=== PATIENT | male | born 1965 | race Caucasian/White ===

== ENCOUNTER → 2016-04-23 | Outpatient (CLI) | payer BC ==
--- NOTE | 2016-04-24 09:11 | CT ---
EXAMINATION TYPE: CT abdomen w con DATE OF EXAM: 04/23/2016 8:08 PM COMPARISON: CT chest 28 March 2016 HISTORY: follow up chest CT per patient. Left renal cyst, liver lesion N28.9, K76.89 CT DLP: 1628.2 mGycm Automated exposure control for dose reduction was used. TECHNIQUE: Helical acquisition of images from the lung bases through the pelvis have been completed. CONTRAST: Performed with Oral Contrast and with IV Contrast, patient injected with 100 mL of Omnipaque 300. FINDINGS: LUNG BASES: No significant abnormality is appreciated. AORTA: No significant abnormality is appreciated. LIVER/GB: The liver shows low attenuation possibly due to fatty infiltration. No evident change in th e appearance of the previously described liver lesions which show a nonaggressive appearance. The gal lbladder is contracted. PANCREAS: No significant abnormality is seen. SPLEEN: No significant abnormality is seen. ADRENALS: No significant abnormality is seen. KIDNEYS: Left renal cyst measures approximately 2.5 cm, shows cystic Hounsfield unit measurements. REPRODUCTIVE ORGANS: Not included BOWEL: Appendix is normal, no bowel obstruction diverticular changes noted in the sigmoid colon. Sma ll umbilical hernia contains fat. FREE AIR: No Free Air visible ASCITES: None visible. PELVIC ADENOPATHY: Not included RETROPERITONEAL ADENOPATHY: No Retroperitoneal Adenopathy visible. URINARY BLADDER: Not included OSSEOUS STRUCTURES: Mild degenerative disc changes in the visualized spine. IMPRESSION: PROBABLE SIMPLE CYST WITHIN THE LEFT KIDNEY, FOLLOW-UP TO ASSESS FOR STABILITY. PROBABLE FATTY INFILT RATION OF THE LIVER. NONSPECIFIC LOW DENSE FOCI WITHIN THE LIVER ARE STABLE COMPARED TO PRIOR EXAM . THESE AREAS SHOW NONAGGRESSIVE APPEARANCE AND ARE FELT LIKELY TO BE BENIGN, CONSIDER FOLLOW-UP TO A SSESS FOR STABILITY OR ALTERNATIVELY CONSIDER MR LIVER. DIVERTICULOSIS. ADDITIONAL FINDINGS ABOVE.
== END | disposition home or self-care (01) ==
LOC: RADCTMAIN 19:19
PROVIDERS: ATTEND Internal Medicine
DX: N28.1 Cyst of kidney, acquired (principal)
CPT/HCPCS: 74160; Q9967

== ENCOUNTER → 2016-07-24 | Outpatient (CLI) | payer BC ==
--- NOTE | 2016-07-25 07:12 | PN ---
A 50-year-old male patient diagnosed having severe obstructive sleep apnea with an AHI of 67. Today the patient is coming in for a compliancy check. Currently, the patient is on CPAP pressure of 10 cm of water. He is doing extremely well. His compliancy over the past 30 days showed a 100% compliance for CPAP use more than 4 hours. AHI while on treatment is down to 2.3. The patient's average CPAP unit is 5.9 hours and the patient's leak factor is 23 L/min. Treatment is successful. The patient is benefiting from the treatment. He has no specific complaints. He is encouraged to lose weight. BP is 139/84, pulse 76, respirations 16. Montgomery score of 12 and weight is 337, temperature 97.6. GENERAL APPEARANCE: Calm, comfortable. HEENT: Crowding of the posterior pharynx. There is no goiter or neck masses. LUNGS: Diminished; otherwise clear. HEART: Sounds are regular rate and rhythm. Normal S1, S2. ABDOMEN: Soft, nontender. No organomegaly. EXTREMITIES: No edema, no cyanosis or clubbing. IMPRESSION: 1. Symptomatic obstructive sleep apnea, severe, with an apnea-hypopnea index of 67.2, currently on CPAP at a pressure of 10 with excellent clinical response and compliance. 2. Morbid obesity. 3. Chronic hypersomnia. Montgomery score is down to 12. 4. Paroxysmal atrial fibrillation. 5. Periodic limb movements. PLAN: Continue treatment at the same level of pressure, treatment is successful, encourage weight loss, see me back in a year's time in follow-up.
== END | disposition home or self-care (01) ==
LOC: SLEEP 13:42
PROVIDERS: ATTEND Internal Medicine Critical Care Medicine
DX: G47.33 Obstructive sleep apnea (adult) (pediatric) (principal); E66.01 Morbid (severe) obesity due to excess calories; G47.13 Recurrent hypersomnia; I48.0 Paroxysmal atrial fibrillation

== ENCOUNTER → 2017-08-13 | Outpatient (CLI) | payer BC ==
--- NOTE | 2017-08-13 16:27 | PN ---
PROGRESS NOTE Bertin is coming in for a yearly check regarding his obstructive sleep apnea. He is known to have severe PAULINE with an AHI of 67. He was being treated with a CPAP pressure of 10 cm of water. His machine stopped working suddenly and based on that, the patient went to his DME and he was given new machine based on the underlying warranty available for this unit. His setting is the same which is a CPAP pressure of 10. He is averaging around 6.1 hours of CPAP use per night. His leak factor 30 L per minute. His AHI while on treatment is down to 1.4. He is using a Mirage stand wide FX nose mask and I introduced air fit nose mask for this patient which he likes and he is willing to undertake the switch. His cardiac rhythm remains sinus. He has a few respiratory tract infections that were treated on an outpatient basis with antibiotics. No angina. No palpitations. No problems with his atrial fibrillation. As mentioned, he remains in sinus rhythm. REVIEW OF SYSTEMS: 12-point review of system was done. He has lost 1 pound since his last evaluation. No fever no chills. No weight loss. No headaches. No altered mentation. No anxiety or depression. No claustrophobia. No nausea vomiting, diarrhea. No abdominal pain. No chest pain. No palpitation. No cough or sputum production. No wounds ulcers or skin lesions. No falls. No history of any motor vehicle accidents because of feeling drowsy or sleepy. PHYSICAL EXAMINATION: BP is 130/83, pulse 86, respirations 16, temperature 97.0, saturation 95% on room air. BMI is 40.3, weight is 136, height is 64. GENERAL: Calm, comfortable. Head is atraumatic, normocephalic. NECK: Supple. There is no JVD. No goiter or neck masses. Mallampati class IV. LUNGS: Clear to auscultation. HEART: Sounds regular rate and rhythm. Normal S1, S2. No S3, S4. No murmurs. ABDOMEN: Soft, nontender. No organomegaly. EXTREMITIES: No edema. No cyanosis or clubbing. NEUROLOGIC: Alert and oriented x3. No focal neurological deficits. PSYCHIATRIC: Negative for anxiety or depression. SKIN: Negative for any wounds or ulceration. IMPRESSION: 1. Symptomatic obstructive sleep apnea severe with an AHI of 67 currently receiving CPAP with a pressure of 10. 2. Morbid obesity with a BMI of 40.3. 3. Chronic hypersomnia improved. [place] score down to 7. 4. Paroxysmal atrial fibrillation current rhythm is sinus. PLAN: 1. Continue CPAP therapy at same level of pressure. 2. Encourage weight loss. 3. Switch this patient to an AirFit N20 nose mask. 4. Renew his CPAP supplies. 5. See me back in a year's time, earlier if needed. MMODL / IJN: [id number] /
== END | disposition home or self-care (01) ==
LOC: SLEEP 14:03
PROVIDERS: ATTEND Internal Medicine Critical Care Medicine
DX: G47.33 Obstructive sleep apnea (adult) (pediatric) (principal); E66.01 Morbid (severe) obesity due to excess calories; I48.0 Paroxysmal atrial fibrillation; Z68.41 Body mass index [BMI] 40.0-44.9, adult; Z99.89 Dependence on other enabling machines and devices

== ENCOUNTER → 2018-11-11 | Outpatient (CLI) | payer BC ==
--- NOTE | 2018-11-11 14:34 | SFUN ---
SLEEP CENTER FOLLOW UP NOTE A 52-year-old male patient with known history of coming in for annual check up. He is using a Mirage FX wide nose mask. Since his last evaluation, the patient has undergone a right hip replacement. The surgery went well without any major issues. He remains on CPAP pressure of 10. No cardiac disease, no atrial fibrillation. No stroke, no signs of any congestive heart failure. Weight is stable at 336, very compliant with CPAP unit, using it an average of 6.3 hours per night. CPAP use for more than 4 hours, . Leak is 12 L/minute. AHI is down to 1.2. No complaints otherwise for now. Treatment successful, supplies needed to be renewed. [place] score is at 12. 14-POINT REVIEW OF SYSTEMS: Positive findings are all negative, stable weight. No change in body weight. No headaches, no altered mentation. No palpitations, no chest pain. No shortness of breath. No nausea or vomiting. No diarrhea. No abdominal pain. No history of frequency or urgency. No episodes of falling asleep during day-to-day activities. He seems to be quite refreshed. No sleepwalking or sleep talking. No restlessness in the lower extremities. PHYSICAL EXAMINATION: BP is 135/84, pulse 72, respirations 16, temperature 97.6, saturation is 97% on room air. Height is 64 inches, weight is 336, BMI is 39.3. GENERAL APPEARANCE: Calm, comfortable. HEENT: Atraumatic, normocephalic. NECK: Supple. No JVD. No goiter or neck masses. Mallampati class IV. LUNGS: Clear to auscultation. HEART: Sounds regular rate and rhythm. Normal S1, S2. No murmurs. ABDOMEN: Soft, nontender. No organomegaly. EXTREMITIES: No edema. No cyanosis or clubbing. NEUROLOGIC: Alert and oriented x3. No focal neurological deficits. PSYCHIATRIC: Negative for anxiety or depression. IMPRESSION: 1. Severe symptomatic obstructive sleep apnea, apnea-hypopnea index of 67, still on CPAP pressure of 10 with eccentric response and compliance. 2. Hypersomnia, improved. 3. Obesity, stable weight. 4. Paroxysmal atrial fibrillation, current rhythm is sinus. PLAN: Continue same plan, continue same treatment. Keep pressure at 10. Use a Mirage FX wide mask and alternatively was given the FX 20 large-sized nose mask to try. Treatment success is averaging more than 6 hours of CPAP use per night. No complaints. Comorbidities are all stable. Will follow. MMODL / IJN: [id number] /
== END | disposition home or self-care (01) ==
LOC: SLEEP 13:11
PROVIDERS: ATTEND Internal Medicine Critical Care Medicine
DX: G47.33 Obstructive sleep apnea (adult) (pediatric) (principal); E66.9 Obesity, unspecified; I48.0 Paroxysmal atrial fibrillation; Z68.39 Body mass index [BMI] 39.0-39.9, adult; Z99.89 Dependence on other enabling machines and devices

== ENCOUNTER 2019-11-05 15:00 | Observation (INO) | payer BC ==
[2019-11-05] MEDS ORDERED: NITROGLYCERIN OINT 1 INCH/GM PACKET TOPICAL STA (15:30)
[2019-11-05] MEDS ORDERED: ASPIRIN 81 MG PO STA (15:30)
--- NOTE | 2019-11-05 15:45 | ED ---
General Adult HPI - General Chief complaint: Chest Pain Stated complaint: Chest Pain Time Seen by Provider: 11/05/19 15:15 Source: patient, family, RN notes reviewed, old records reviewed Mode of arrival: ambulatory Limitations: no limitations - History of Present Illness Initial comments: This a 53-year-old male presents emergency Department complaining of chest pain since she woke up this morning. [facility] decided to get checked out. Patient states he has a history of atrial fibrillation and is not on any anticoagulant. . Patient denies any recent fever chills or cough per patient denies any abdominal pain patient denies nausea vomiting diarrhea. Patient states the pain radiates up to his left shoulder. Patient states he was mildly nauseated mildly short of breath and occasionally diaphoretic. Patient states exertion did not seem to make the pain worse but it has been constant and hasn't gone away - Related Data Home Medications Medication Instructions Recorded Confirmed Multivitamin [Men's Multi-Vitamin] 1 tab PO DAILY 01/06/16 11/05/19 [place]-3 Fatty Acids/Fish Oil [Fish 1 cap PO DAILY 01/06/16 11/05/19 Oil 1,000 mg Softgel] Aspirin EC [Ecotrin] 325 mg PO DAILY 11/05/19 11/05/19 Cholecalciferol [Vitamin D3 (25 1,000 unit PO DAILY 11/05/19 11/05/19 Mcg = 1000 Iu)] Flecainide [Tambocor] 50 mg PO Q12HR 11/05/19 11/05/19 Tamsulosin [Flomax] 0.4 mg PO DAILY 11/05/19 11/05/19 Previous Rx's Medication Instructions Recorded atenoloL [Atenolol] 25 mg PO DAILY #90 tablet 03/28/16 Allergies Allergy/AdvReac Type Severity Reaction Status Date / Time No Known Allergies Allergy Verified 11/05/19 16:45 Review of Systems ROS Statement: Those systems with pertinent positive or pertinent negative responses have been documented in the HPI. ROS Other: All systems not noted in ROS Statement are negative. Past Medical History Past Medical History: Atrial Fibrillation, Hypertension, Osteoarthritis (OA) Additional Past Medical History / Comment(s): See Dr Mosher's H&P, Apr 2013 Had Afib, snores- sleeps poorly. History of Any Multi-Drug Resistant Organisms: None Reported Past Surgical History: Ablation, Joint Replacement, Orthopedic Surgery Additional Past Surgical History / Comment(s): LAST CARDIOVERSION 02/16/16. Cardioversion x 2,Ganglion cyst removed right ankle. February 2014 left hip replacement, 03-26-16 cardiac ablation Past Anesthesia/Blood Transfusion Reactions: No Reported Reaction Past Psychological History: No Psychological Hx Reported Smoking Status: Former smoker Past Alcohol Use History: Occasional Past Drug Use History: None Reported - Past Family History Mother Family Medical History: Diabetes Mellitus, Eye Disorder Additional Family Medical History / Comment(s): Still living age 84 Father Family Medical History: Cancer, Pneumonia Additional Family Medical History / Comment(s): BLADDER CA, from age 87 "old age" General Exam - General Exam Comments Initial Comments: GENERAL: Patient is well-developed and well-nourished. Patient is nontoxic and well- hydrated and is in mild distress. ENT: Neck is soft and supple. No significant lymphadenopathy is noted. Oropharynx is clear. Moist mucous membranes. Neck has full range of motion without eliciting any pain. EYES: The sclera were anicteric and conjunctiva were pink and moist. Extraocular movements were intact and pupils were equal round and reactive to light. Eyelids were unremarkable. PULMONARY: Unlabored respirations. Good breath sounds bilaterally. No audible rales rhonchi or wheezing was noted. CARDIOVASCULAR: There is a regular rate and rhythm without any murmurs gallops or rubs. ABDOMEN: Soft and nontender with normal bowel sounds. SKIN: Skin is clear with no lesions or rashes and otherwise unremarkable. NEUROLOGIC: Patient is alert and oriented x3. Cranial nerves II through XII are grossly intact. Motor and sensory are also intact. Normal speech, volume and content. Symmetrical smile. MUSCULOSKELETAL: Normal extremities with adequate strength and full range of motion. No lower extremity swelling or edema. No calf tenderness. LYMPHATICS: No significant lymphadenopathy is noted PSYCHIATRIC: Normal psychiatric evaluation. N Limitations: no limitations Course Vital Signs 11/05/19 11/05/19 15:13 15:22 Temperature 98.4 F Pulse Rate 78 Pulse Rate [ 79 Stock Roller ] Respiratory 20 20 Rate Blood Pressure 140/92 O2 Sat by Pulse 98 Oximetry Medical Decision Making - Medical Decision Making EKG shows normal sinus rhythm at 77 bpm CO interval 176 dresses 96 QT interval 386 QTC is 436. Patient's EKG shows no ST segment elevation or depression. Chest x-ray shows no acute abnormality. I started the patient on heparin secondary to his unstable angina. I spoke to Dr. Guerrero he agreed to admit the patient admitted the patient I wrote admitting orders I consult cardiology continued heparin and aspirin and Nitropaste on the floor. - Lab Data Result diagrams: 11/05/19 15:49 11/05/19 15:49 Lab Results 11/05/19 11/05/19 11/05/19 Range/Units 15:49 15:49 15:49 WBC 6.4 (3.8-10.6) k/uL RBC 4.92 (4.30-5.90) m/uL Hgb 15.2 (13.0-17.5) gm/dL Hct 45.0 (39.0-53.0) % MCV 91.4 (80.0-100.0) fL MCH 30.9 (25.0-35.0) pg MCHC 33.8 (31.0-37.0) g/dL RDW 13.3 (11.5-15.5) % Plt Count 213 (150-450) k/uL Neutrophils % 68 % Lymphocytes % 21 % Monocytes % 5 % Eosinophils % 2 % Basophils % 1 % Neutrophils # 4.3 (1.3-7.7) k/uL Lymphocytes # 1.3 (1.0-4.8) k/uL Monocytes # 0.3 (0-1.0) k/uL Eosinophils # 0.1 (0-0.7) k/uL Basophils # 0.1 (0-0.2) k/uL PT 9.9 (9.0-12.0) sec INR 0.9 (<1.2) APTT 22.7 (22.0-30.0) sec Sodium 135 L (137-145) mmol/L Potassium 4.3 (3.5-5.1) mmol/L Chloride 104 (98-107) mmol/L Carbon Dioxide 24 (22-30) mmol/L Anion Gap 7 mmol/L BUN 9 (9-20) mg/dL Creatinine 0.70 (0.66-1.25) mg/dL Est GFR (CKD-EPI)AfAm >90 (>60 ml/min/1.73 sqM) Est GFR (CKD-EPI)NonAf >90 (>60 ml/min/1.73 sqM) Glucose 99 (74-99) mg/dL Calcium 9.8 (8.4-10.2) mg/dL Magnesium 1.9 (1.6-2.3) mg/dL Total Bilirubin 0.7 (0.2-1.3) mg/dL AST 26 (17-59) U/L ALT 27 (4-49) U/L Alkaline Phosphatase 65 (38-126) U/L Troponin I (0.000-0.034) ng/mL Total Protein 6.9 (6.3-8.2) g/dL Albumin 4.1 (3.5-5.0) g/dL 11/05/19 Range/Units 15:49 WBC (3.8-10.6) k/uL RBC (4.30-5.90) m/uL Hgb (13.0-17.5) gm/dL Hct (39.0-53.0) % MCV (80.0-100.0) fL MCH (25.0-35.0) pg MCHC (31.0-37.0) g/dL RDW (11.5-15.5) % Plt Count (150-450) k/uL Neutrophils % % Lymphocytes % % Monocytes % % Eosinophils % % Basophils % % Neutrophils # (1.3-7.7) k/uL Lymphocytes # (1.0-4.8) k/uL Monocytes # (0-1.0) k/uL Eosinophils # (0-0.7) k/uL Basophils # (0-0.2) k/uL PT (9.0-12.0) sec INR (<1.2) APTT (22.0-30.0) sec Sodium (137-145) mmol/L Potassium (3.5-5.1) mmol/L Chloride (98-107) mmol/L Carbon Dioxide (22-30) mmol/L Anion Gap mmol/L BUN (9-20) mg/dL Creatinine (0.66-1.25) mg/dL Est GFR (CKD-EPI)AfAm (>60 ml/min/1.73 sqM) Est GFR (CKD-EPI)NonAf (>60 ml/min/1.73 sqM) Glucose (74-99) mg/dL Calcium (8.4-10.2) mg/dL Magnesium (1.6-2.3) mg/dL Total Bilirubin (0.2-1.3) mg/dL AST (17-59) U/L ALT (4-49) U/L Alkaline Phosphatase (38-126) U/L Troponin I <0.012 (0.000-0.034) ng/mL Total Protein (6.3-8.2) g/dL Albumin (3.5-5.0) g/dL Critical Care Time Critical Care Time: Yes Total Critical Care Time: 35 Disposition Clinical Impression: Unstable angina pectoris Disposition: ADMITTED IP TO THIS HOSP Referrals: Migue Goodrich MD [Primary Care Provider] - 1-2 days Time of Disposition: 17:09
--- NOTE | 2019-11-05 16:07 | XR ---
EXAMINATION TYPE: XR chest 2V DATE OF EXAM: 11/05/2019 COMPARISON: Chest x-ray May 03, 2013. CT chest March 28, 2016 HISTORY: Chest pain and shortness of breath. TECHNIQUE: Frontal and lateral views of the chest are obtained. FINDINGS: There is chronic parenchymal change without suspicious focal air space opacity, pleural ef fusion, or pneumothorax seen. The cardiac silhouette size remains within normal limits. Mild multile michael spurring in the spine. Overlying EKG leads currently. IMPRESSION: Chronic changes without acute pulmonary process. No significant change from prior studie s.
[2019-11-05 16:08] LABS: Basophils # (A) 0.1 k/uL (0-0.2); Basophils % (A) 1 %; Eosinophils # (A) 0.1 k/uL (0-0.7); Eosinophils % (A) 2 %; HGB 15.2 gm/dL (13.0-17.5); Lymphocytes # (A) 1.3 k/uL (1.0-4.8); Lymphocytes % (A) 21 %; MCH 30.9 pg (25.0-35.0); MCHC 33.8 g/dL (31.0-37.0); MCV 91.4 fL (80.0-100.0); Mean Platelet Volume 7.7; Monocytes # (A) 0.3 k/uL (0-1.0); Monocytes % (A) 5 %; Neutrophils # (A) 4.3 k/uL (1.3-7.7); Neutrophils % (A) 68 %; Platelet Count 213 k/uL (150-450); RBC 4.92 m/uL (4.30-5.90); RDW 13.3 % (11.5-15.5); WBC 6.4 k/uL (3.8-10.6)
[2019-11-05 16:18] LABS: ALT 27 U/L (4-49); AST 26 U/L (17-59); African American GFR (CKD) >90 (>60 ml/min/1.73 sqM); Albumin 4.1 g/dL (3.5-5.0); Alkaline Phosphatase 65 U/L (38-126); Anion Gap 7 mmol/L; Blood Urea Nitrogen 9 mg/dL (9-20); Calcium 9.8 mg/dL (8.4-10.2); Carbon Dioxide 24 mmol/L (22-30); Chloride 104 mmol/L (98-107); Glucose 99 mg/dL (74-99); Magnesium 1.9 mg/dL (1.6-2.3); Non-African American GFR(CKD) >90 (>60 ml/min/1.73 sqM); Potassium 4.3 mmol/L (3.5-5.1); Sodium 135 mmol/L (137-145); Total Bilirubin 0.7 mg/dL (0.2-1.3); Total Protein 6.9 g/dL (6.3-8.2)
[2019-11-05 16:22] LABS: INR 0.9 (<1.2); Partial Thromboplastin Time 22.7 sec (22.0-30.0); Prothrombin Time 9.9 sec (9.0-12.0)
[2019-11-05] MEDS ORDERED: HEPARIN SODIUM,PORCINE 5,000 UNIT/ML 1 ML VIAL IV ONE (17:06)
[2019-11-05] MEDS ORDERED: NITROGLYCERIN SL TABS 0.4 MG TAB SUBLINGUAL PRN (17:09)
[2019-11-05] MEDS ORDERED: HEPARIN SOD,PORK IN 0.45% NACL 25,000 UNIT in 0.45% NACL 1 250ML.BAG IV SCH (17:15)
[2019-11-05] MEDS: NITROGLYCERIN OINT 1 INCH/GM PACKET TOPICAL SCH (22:02)
[2019-11-05] MEDS: FLECAINIDE 50 MG TAB PO SCH (22:03)
--- NOTE | 2019-11-05 22:30 | HP ---
HISTORY AND PHYSICAL DATE OF SERVICE: 11/05/2019 CHIEF COMPLAINT: Chest pain. HISTORY OF PRESENT ILLNESS: This 53-year-old gentleman with a past medical history of multiple medical problems, including atrial fibrillation, hypertension, history of DJD, history of cardiac ablation, being followed by Dr. Goodrich in the outpatient setting, was complaining of abdominal discomfort which was felt in the upper part of the abdomen, almost like a burning, and then it subsequently went up to the epigastrium and went to the right shoulder. The patient came to [facility] and was admitted for further evaluation and treatment. There is no history of any fever, rigor or chills. No history of headache, loss of consciousness, seizures. Patient mildly nauseated. Otherwise, occasional diaphoresis is also reported. There is no history of fever, rigor or chills at this time. PAST MEDICAL HISTORY: Atrial fibrillation, cardiac ablation, hypertension, DJD. MEDICATIONS PRIOR TO ADMISSION: 1. Atenolol 25 mg daily. 2. Flomax 0.4 daily. 3. Fish oil. 4. Multivitamins. 5. Tambocor. 6. Cholecalciferol. 7. Ecotrin. ALLERGIES: NONE. FAMILY HISTORY: History of diabetes mellitus, history of eye disorder. SOCIAL HISTORY: Previous history of smoking. Occasional alcohol intake. REVIEW OF SYSTEMS: ENT: No diminished hearing. No diminished vision. CARDIOVASCULAR SYSTEM: As mentioned earlier. RESPIRATORY SYSTEM: As mentioned earlier. GI: As mentioned earlier. : No dysuria or retention. NERVOUS SYSTEM: No numbness, weakness. ALLERGY/IMMUNOLOGY: No asthma, hayfever. MUSCULOSKELETAL: As mentioned earlier. HEMATOLOGY/ONCOLOGY: No history of anemia. ENDOCRINE: No history of diabetes, hypothyroidism. CONSTITUTIONAL: As mentioned earlier. DERMATOLOGY: Negative. RHEUMATOLOGY: Negative. PSYCHIATRY: As mentioned earlier. PHYSICAL EXAMINATION: Patient alert and oriented x3. Pulse is 75, blood pressure 133/87, respiration 18, temperature 98.1, pulse ox 100% on 2 L. HEENT: Conjunctivae normal. Oral mucosa moist. NECK: No jugular venous distention. No carotid bruit. No lymph node enlargement. CARDIOVASCULAR SYSTEM: S1, S2 muffled. No S3. No S4. RESPIRATORY SYSTEM: Breath sounds diminished at the bases. No rhonchi. No crackles. ABDOMEN: Soft. Mild diffuse discomfort. No tenderness. No guarding. No rigidity. No mass palpable. No ascites. Bowel sounds present. LEGS: No edema. No swelling. NERVOUS SYSTEM: Higher functions as mentioned earlier. Moves all 4 limbs. No focal motor or sensory deficit. LYMPHATICS: No lymph node palpable in neck, axillae or groin. SKIN: No ulcer, rash, bleeding. JOINTS: No active deforming arthropathy. LABS: CBC within normal limits. Sodium 135. The troponins are negative. The EKG which was personally reviewed showed normal sinus rhythm and no acute changes. ASSESSMENT: 1. Chest pain, possible unstable angina. 2. Epigastric pain. Rule out GERD. Rule out acute cholecystitis, cholelithiasis. 3. Hyponatremia, mild. 4. History of atrial fibrillation. 5. Hypertension. 6. History of degenerative joint disease. 7. History of ablation. 8. History of cardioversion. 9. History of ganglion cyst removal. 10.Remote history of nicotine dependence. 11.Obesity with body mass index of 39.7. 12.FULL CODE. RECOMMENDATIONS AND DISCUSSION: In this 53-year-old gentleman who presented with multiple medical issues, at this time I recommend to continue current medications, symptomatic treatment. Rule out myocardial infarction. Give coronary syndrome protocol. Cardiology consultation. Possible stress test. The patient did have a stress test last year. We will continue to evaluate. I would also recommend ultrasound of the abdomen to rule out the possibility of gallbladder disease. COVID-19 has been also tested. I would resume the home medications and I would also recommend proton pump inhibitors empirically. Flecainide will be continued. A copy of this dictation is being forwarded to Dr. Goodrich, who is the primary physician. MMODL / IJN: [id number] /
[2019-11-06] MEDS: NITROGLYCERIN OINT 1 INCH/GM PACKET TOPICAL SCH ×2 (02:01→06:26)
[2019-11-06 02:49] LABS: Basophils # (A) 0.1 k/uL (0-0.2); Basophils % (A) 1 %; Eosinophils # (A) 0.3 k/uL (0-0.7); Eosinophils % (A) 4 %; HCT 44.3 % (39.0-53.0); HGB 14.5 gm/dL (13.0-17.5); Lymphocytes # (A) 2.3 k/uL (1.0-4.8); Lymphocytes % (A) 34 %; MCH 30.2 pg (25.0-35.0); MCHC 32.8 g/dL (31.0-37.0); Mean Platelet Volume 7.5; Monocytes # (A) 0.3 k/uL (0-1.0); Monocytes % (A) 5 %; Neutrophils # (A) 3.5 k/uL (1.3-7.7); Neutrophils % (A) 52 %; Platelet Count 202 k/uL (150-450); RBC 4.81 m/uL (4.30-5.90); RDW 13.4 % (11.5-15.5); WBC 6.7 k/uL (3.8-10.6)
[2019-11-06 03:13] LABS: African American GFR (CKD) >90 (>60 ml/min/1.73 sqM); Anion Gap 8 mmol/L; Blood Urea Nitrogen 10 mg/dL (9-20); Calcium 9.2 mg/dL (8.4-10.2); Carbon Dioxide 24 mmol/L (22-30); Chloride 104 mmol/L (98-107); Glucose 101 mg/dL (74-99); Non-African American GFR(CKD) >90 (>60 ml/min/1.73 sqM); Potassium 4.2 mmol/L (3.5-5.1); Sodium 136 mmol/L (137-145)
[2019-11-06] MEDS ORDERED: HEPARIN SODIUM,PORCINE 5,000 UNIT/ML 1 ML VIAL IV STA (03:14)
[2019-11-06 03:42] LABS: Cholesterol 223 mg/dL (<200); HDL Cholesterol 51 mg/dL (40-60); LDL Cholesterol,Calculated 105 mg/dL (0-99); Triglycerides 335 mg/dL (<150)
[2019-11-06] MEDS: HYDROcodone/APAP 5-325MG 1 EACH TAB PO PRN ×2 (06:25→21:34)
[2019-11-06 07:09] LABS: Appearance,Urine Clear (Clear); Bilirubin,Urine Negative (Negative); Blood,Urine Negative (Negative); Color,Urine Yellow; Glucose,Urine (UA) Negative (Negative); Ketones,Urine Negative (Negative); Leukocyte Esterase,Urine Negative (Negative); Nitrite,Urine Negative (Negative); Protein,Urine Negative (Negative); Urobilinogen,Urine <2.0 mg/dL (<2.0)
--- NOTE | 2019-11-06 07:46 | US ---
EXAMINATION TYPE: US gallbladder DATE OF EXAM: 11/06/2019 COMPARISON: CT 2017 CLINICAL HISTORY: abdominal pain. Chest pain EXAM MEASUREMENTS: Liver Length: 22.5 cm Gallbladder Wall: 0.2 cm CBD: 0.3 cm Right Kidney: 12.6 x 4.9 x 5.3 cm Pancreas: obscured by overlying bowel gas Liver: Enlarged, difficult to penetrate, heterogeneous Gallbladder: wnl Evidence for sonographic Cisneros's sign: No CBD: wnl Right Kidney: No evidence of hydronephrosis, probable calculi lower pole= 0.5 cm IMPRESSION: 1. Hepatomegaly correlate for hepatic steatosis, hepatocellular disease or hepatitis. 2. Nonobstructing 5 mm right renal calculus.
[2019-11-06] MEDS ORDERED: CAFFEINE CITRATE 60 MG/3 ML VIAL IV PRN (08:24)
[2019-11-06] MEDS ORDERED: REGADENOSON 0.4 MG/5 ML SYRINGE IV ONE (08:24)
[2019-11-06] MEDS ORDERED: AMINOPHYLLINE 500 MG/20 ML VIAL IV PRN (08:24)
[2019-11-06] MEDS ORDERED: ASPIRIN 325 MG TAB PO SCH (09:00)
[2019-11-06] MEDS ORDERED: NON FORMULARY DRUG (Aspirin Ec 325 MG) PO SCH (09:00)
[2019-11-06] MEDS: TAMSULOSIN 0.4 MG CAP.ER.24H PO SCH (09:57)
[2019-11-06] MEDS: MULTIVITAMINS, THERA 1 EACH TAB PO SCH (09:57)
[2019-11-06] MEDS: CHOLECALCIFEROL 1,000 UNIT TAB PO SCH (09:57)
[2019-11-06] MEDS: FLECAINIDE 50 MG TAB PO SCH ×2 (09:58→21:36)
[2019-11-06] MEDS: NON FORMULARY DRUG (Omega-3 Fatty Acids/Fish Oil [Fish Oil 1,000 Mg Softgel] 1 CAP) PO SCH (11:00)
[2019-11-06] MEDS ORDERED: ATORVASTATIN 10 MG TAB PO SCH (11:00)
--- NOTE | 2019-11-06 11:09 | P.CRDCN ---
History of Present Illness History of present illness: HISTORY OF PRESENTING ILLNESS This is a pleasant 53-year-old male past medical history significant for ex-is no atrial fibrillation status post radiofrequency ablation in 2016, hy pertension, former nicotine dependence and arthritis. He follows in the office with Dr. Hillman. We have been asked to see in consultation for chest pain. He states he woke up yesterday with discomfort in the upper abdomen and epigastric region. The discomfort radiated up into the anterior right chest and into the right shoulder. Throughout the day he felt intermittently nauseated and felt like he was going to vomit then he would belch and the nausea would subside. He also has intermittent episodes of diaphoresis. No shortness of breath, dizziness or palpitations. DIAGNOSTICS EKG reveals sinus mechanism with no acute ischemic changes. Chest xray negative for an acute cardiopulmonary process. Laboratory reviewed, CBC unremarkable, sodium 136, potassium 4.2, creatinine 0.76, cardiac enzymes negative 3, LDL 105, HDL 51, triglycerides 335, total cholesterol 223. Current cardiac medications include aspirin 325 mg daily, flecainide 50 mg twice a day, atenolol 25 mg daily. He underwent an exercise stress test in the office September 2018 revealing fair exercise capacity with no evidence of stress-induced ischemia. Most recent echocardiogram obtained in the office September 2018 reveals preserved LV systolic function with ejection fraction 55%. REVIEW OF SYSTEMS At the time of my exam: CONSTITUTIONAL: Denies fever or chills. CARDIOVASCULAR: Denies chest pain, shortness of breath, orthopnea, PND or palpitations. RESPIRATORY: Denies cough. GASTROINTESTINAL: Denies abdominal pain, diarrhea, constipation, nausea or vomiting. MUSCULOSKELETAL: Denies myalgias. NEUROLOGIC: Denies numbness, tingling or weakness. ENDOCRINE: Denies fatigue, weight change, polydipsia or polyurina. GENITOURINARY: Denies burning, hematuria or urgency with micturation. HEMATOLOGIC: Denies history of anemia or bleeding. PHYSICAL EXAMINATION Blood pressure 127/78 heart rate 76 afebrile and maintaining oxygen saturation on room air. CONSTITUTIONAL: No apparent distress. Obese. HEENT: Head is normocephalic. Pupils are equal, round. Sclerae anicteric. Mucous membranes of the mouth are moist. No JVD. No carotid bruit. CHEST EXAMINATION: Lungs are clear to auscultation. No chest wall tenderness is noted on palpation or with deep breathing. HEART EXAMINATION: Regular rate and rhythm. S1, S2 heard. No murmurs, gallops or rub. ABDOMEN: Soft, nontender. Positive bowel sounds. EXTREMITIES: 2+ peripheral pulses, no lower extremity edema and no calf tenderness. NEUROLOGIC EXAMINATION: Patient is awake, alert and oriented x3. ASSESSMENT Chest pain, atypical for angina. An acute coronary event has been ruled out. Paroxysmal atrial fibrillation status post ablation, maintaining sinus mechanism Hypertension Dyslipidemia Former nicotine dependence, quit in 2013 Obesity, BMI 39 PLAN An acute coronary event has been ruled out. Due to hip injury and awaiting surgery, he cannot walk on the treadmill. Proceed with lexiscan stress test to assess for reversible cardiac ischemia. Decrease aspirin to 81 mg daily and initiate atorvastatin 40 mg daily for lowering of LDL cholesterol. Lifestyle modifications are recommended for weight loss and also lowering of LDL cholesterol. Thank you kindly for this consultation. Nurse Practitioner note has been reviewed, I agree with a documented findings and plan of care. Patient was seen and examined. Past Medical History Past Medical History: Atrial Fibrillation, Hypertension, Osteoarthritis (OA) Additional Past Medical History / Comment(s): See Dr Mosher's H&P, Apr 2013 Had Afib, snores- sleeps poorly. History of Any Multi-Drug Resistant Organisms: None Reported Past Surgical History: Ablation, Joint Replacement, Orthopedic Surgery Additional Past Surgical History / Comment(s): LAST CARDIOVERSION 02/16/16. Cardioversion x 2,Ganglion cyst removed right ankle. February 2014 left hip replacement, 03-26-16 cardiac ablation Past Anesthesia/Blood Transfusion Reactions: No Reported Reaction Smoking Status: Former smoker - Past Family History Mother Family Medical History: Diabetes Mellitus, Eye Disorder Additional Family Medical History / Comment(s): Still living age 84 Father Family Medical History: Cancer, Pneumonia Additional Family Medical History / Comment(s): BLADDER CA, from age 87 "old age" Medications and Allergies Home Medications Medication Instructions Recorded Confirmed Type Multivitamin [Men's Multi-Vitamin] 1 tab PO DAILY 01/06/16 11/05/19 History [place]-3 Fatty Acids/Fish Oil [Fish 1 cap PO DAILY 01/06/16 11/05/19 History Oil 1,000 mg Softgel] atenoloL [Atenolol] 25 mg PO DAILY #90 tablet 03/28/16 11/05/19 Rx Aspirin EC [Ecotrin] 325 mg PO DAILY 11/05/19 11/05/19 History Cholecalciferol [Vitamin D3 (25 1,000 unit PO DAILY 11/05/19 11/05/19 History Mcg = 1000 Iu)] Flecainide [Tambocor] 50 mg PO Q12HR 11/05/19 11/05/19 History Tamsulosin [Flomax] 0.4 mg PO DAILY 11/05/19 11/05/19 History Allergies Allergy/AdvReac Type Severity Reaction Status Date / Time No Known Allergies Allergy Verified 11/05/19 16:45 Physical Exam Vitals: Vital Signs Temp Pulse Pulse Pulse Resp BP BP 11/06/19 02:58 74 74 11/06/19 02:38 97.8 F 74 121/70 11/05/19 21:00 75 11/05/19 20:25 97.9 F 75 117/79 11/05/19 18:45 98.1 F 74 16 150/90 11/05/19 17:32 98.1 F 75 18 133/87 11/05/19 15:22 98.4 F 78 20 140/92 11/05/19 15:13 79 20 Pulse Ox 11/06/19 02:58 11/06/19 02:38 97 11/05/19 21:00 11/05/19 20:25 99 11/05/19 18:45 99 11/05/19 17:32 100 11/05/19 15:22 98 11/05/19 15:13 Intake and Output 11/05/19 11/06/19 11/06/19 22:59 06:59 14:59 Intake Total 250 94.667 Balance 250 94.667 Intake: Intake, IV Titration 94.667 Amount Heparin Sod,Pork in 0.45% 94.667 NaCl 25,000 unit In 0.45 % NaCl 1 250ml.bag @ 6. 581 UNITS/KG/HR 10 mls/hr IV .Q24H [facility] Rx#: [id number] Oral 250 Other: # Voids 2 Weight 151.953 kg Results 11/06/19 02:01 11/06/19 02:01 Cardiac Enzymes 11/05/19 11/05/19 11/05/19 Range/Units 15:49 15:49 19:14 AST 26 (17-59) U/L Troponin I <0.012 <0.012 (0.000-0.034) ng/mL 11/05/19 Range/Units 21:38 AST (17-59) U/L Troponin I <0.012 (0.000-0.034) ng/mL Coagulation 11/05/19 11/06/19 Range/Units 15:49 02:01 PT 9.9 (9.0-12.0) sec APTT 22.7 26.2 (22.0-30.0) sec Lipids 11/06/19 Range/Units 02:01 Triglycerides 335 H (<150) mg/dL Cholesterol 223 H (<200) mg/dL HDL Cholesterol 51 (40-60) mg/dL CBC 11/05/19 11/06/19 Range/Units 15:49 02:01 WBC 6.4 6.7 (3.8-10.6) k/uL RBC 4.92 4.81 (4.30-5.90) m/uL Hgb 15.2 14.5 (13.0-17.5) gm/dL Hct 45.0 44.3 (39.0-53.0) % Plt Count 213 202 (150-450) k/uL Comprehensive Metabolic Panel 11/05/19 11/06/19 Range/Units 15:49 02:01 Sodium 135 L 136 L (137-145) mmol/L Potassium 4.3 4.2 (3.5-5.1) mmol/L Chloride 104 104 (98-107) mmol/L Carbon Dioxide 24 24 (22-30) mmol/L BUN 9 10 (9-20) mg/dL Creatinine 0.70 0.76 (0.66-1.25) mg/dL Glucose 99 101 H (74-99) mg/dL Calcium 9.8 9.2 (8.4-10.2) mg/dL AST 26 (17-59) U/L ALT 27 (4-49) U/L Alkaline Phosphatase 65 (38-126) U/L Total Protein 6.9 (6.3-8.2) g/dL Albumin 4.1 (3.5-5.0) g/dL Current Medications Generic Name Dose Route Start Last Admin Trade Name Freq PRN Reason Stop Dose Admin Hydrocodone Bitart/Acetaminophen 1 each 11/06/19 05:48 11/06/19 06:25 [place] 5-325 PO 1 each Q6HR PRN Administration Pain Aspirin 325 mg 11/06/19 09:00 Aspirin PO DAILY [facility] Atenolol 25 mg 11/06/19 09:00 Tenormin PO DAILY [facility] Cholecalciferol 1,000 unit 11/06/19 09:00 Vitamin D3 (25 Mcg = 1000 Iu) PO DAILY [facility] Flecainide Acetate 50 mg 11/05/19 21:00 11/05/19 22:03 Tambocor PO 50 mg Q12HR [facility] Administration Heparin Sodium/Sodium Chloride 250 mls @ 10 mls/hr 11/05/19 17:15 11/06/19 03:12 25,000 unit/ Sodium Chloride IV 9.581 units/kg/hr .Q24H [facility] 14.559 mls/hr Titration Protocol 6.581 UNITS/KG/HR Multivitamins 1 each 11/06/19 09:00 Theragran PO DAILY [facility] Nitroglycerin 1 inch 11/05/19 19:00 11/06/19 06:26 Nitro-Bid Oint TOPICAL 1 inch Q6HR [facility] Administration Nitroglycerin 0.4 mg 11/05/19 17:09 Nitrostat SUBLINGUAL Q5M PRN Chest Pain Non-Formulary Medication 1 cap 11/06/19 09:00 [place]-3 Fatty Acids/Fish Oil [Fish Oil 1,000 Mg Softgel] PO DAILY [facility] Tamsulosin HCl 0.4 mg 11/06/19 09:00 Flomax PO DAILY [facility] Intake and Output 11/05/19 11/06/19 11/06/19 22:59 06:59 14:59 Intake Total 250 94.667 Balance 250 94.667 Intake: Intake, IV Titration 94.667 Amount Heparin Sod,Pork in 0.45% 94.667 NaCl 25,000 unit In 0.45 % NaCl 1 250ml.bag @ 6. 581 UNITS/KG/HR 10 mls/hr IV .Q24H [facility] Rx#: [id number] Oral 250 Other: # Voids 2 Weight 151.953 kg 11/06/19 02:01 11/06/19 02:01
--- NOTE | 2019-11-06 12:56 | P.STRESS ---
- Stress Test Note Stress Test Results/Findings: Exam Performed: NM stress lexiscan cardiolite Exam Date: 11/06/19 Reason for Exam: Chest Pressure Height: 6 ft 5 in Weight: 151.95 kg Protocol: Lexiscan Stage: na Duration of Exercise: na Resting Heart Rate: 66 Resting Blood Pressure: 187/59 Maximum Achieved Heart Rate: 92 Maximum Achieved Blood Pressure: 207/67 85% PMHR: 123 100% PMHR: 145 METS: na Technologist Comment: Stress Test Results/Findings: This is a 53-year-old gentleman with history of smoking being evaluated for symptoms of chest pain and shortness of breath. He did Stress data: The baseline EKG showed sinus rhythm with a DE interval and QRS duration. Blood pressure at rest is 146/87 with pulse rate of 69. A standard dose of Lexiscan was infused. EKGs taken during and after the infusion did not reveal any change of ischemia . Final impression: #1. Negative Lexiscan stress test #2. Report on the nuclear images to be given by the radiologist.
--- NOTE | 2019-11-06 13:52 | NM ---
EXAMINATION TYPE: NM stress lexiscan cardiolite DATE OF EXAM: 11/06/2019 COMPARISON: NONE HISTORY: Chest pain TECHNIQUE: After the intravenous administration of 10.2 mCi Tc 99m Sestamibi - Cardiolite resting SP ECT images acquired 135 minutes post injection. The patient received 0.4mg Lexiscan, 25.9 mCi Tc 99m Sestamibi - Stress images obtained [address] injection FINDINGS: Review of stress and rest SPECT images demonstrates reduced uptake involving the inferior wall the my ocardium on stress and rest images. Small area of stress-induced reversibility involving the inferior wall is suggested.. Gated analysis shows normal wall motion with an estimated left ventricular ejec tion fraction of 60 %. IMPRESSION: 1. Predominantly fixed defect involving the inferior wall the myocardium with corresponding wall taye on reduction. A small area of stress-induced reversible ischemia is not excluded correlate clinically . 2. Ejection fraction 60%
--- NOTE | 2019-11-06 14:49 | P.PN ---
Progress Note - Text Abnormal stress test results discussed with the patient. We recommend proceeding with cardiac catheterization. I have discussed the risks, benefits and alternative therapies for the above-mentioned procedure and for both sedation/analgesia as well as necessary blood product administration, if indicated, as they pertain to this patient. The patient has indicated understanding and acceptance of the risks and procedures discussed. Questions have been answered appropriately and he is agreeable to move forward with the above stated procedure. He continues to have intermittent chest pain on the right anterior chest wall and intermittently lightheaded. Given his symptoms we will continue to observe overnight. If he has ongoing symptoms we will keep him in the hospital and perform catheterization Saturday. If his symptoms are improved he can be discharged home on medical therapy and return Saturday at 0900 for an ou tpatient catheterizatoin. Further recommendations to follow based on clinical course.
[2019-11-06] MEDS: atenoloL 25 MG TAB PO SCH (15:16)
--- NOTE | 2019-11-06 15:32 | P.PN ---
Subjective Progress Note Date: 11/06/19 Principal diagnosis: This is a 53-year-old male who was recently admitted with abdominal discomfort which is felt in the right upper part of the abdomen with a burning sensation th at also radiated to the epigastrium and the right shoulder and is being closely monitored. Patient was seen and evaluated by cardiology as well recommending stress test. Patient underwent Lexiscan stress test today showing predominantly fixed defect involving the inferior wall of the myocardium with corresponding wall motion reduction with a possible small area of stress-induced reversible ischemia. Ejection fraction is 60%. Cardiology recommending cardiac catheterization. Patient continued to have some dizziness and right-sided chest pain noted and will be observed for an additional 24 hours and may possibly have cardiac catheterization as an outpatient this Saturday. Patient also underwent gallbladder ultrasound this morning showing hepatomegaly with possible hepatic steatosis, hepatocellular disease, or hepatitis, and a nonobstructing 5 mm right renal calculus with no hydronephrosis noted of the right kidney. Currently patient is denying any shortness of breath or palpitations. Patient was having some mild nausea due to being nothing by mouth since midnight. Patient ate aft er the stress test and tolerated with no reports of nausea or vomiting noted. Patient is afebrile. Will continue to monitor closely. Objective - Vital Signs Vital signs: Vital Signs Temp 97.8 F 11/06/19 15:00 Pulse 78 11/06/19 15:00 Resp 16 11/06/19 15:00 BP 146/83 11/06/19 15:00 Pulse Ox 96 11/06/19 15:00 Intake & Output 11/05/19 11/06/19 11/06/19 18:59 06:59 18:59 Intake Total 344.667 200 Balance 344.667 200 Weight 151.953 kg 151.95 kg Intake: Intake, IV Titration 94.667 Amount Heparin Sod,Pork in 0.45% 94.667 NaCl 25,000 unit In 0.45 % NaCl 1 250ml.bag @ 6. 581 UNITS/KG/HR 10 mls/hr IV .Q24H [facility] Rx#: [id number] Oral 250 200 Other: # Voids 2 2 - Exam Gen: This is a 53-year-old male sitting up in bed, awake, alert and oriented, well-developed, well-nourished, obese. Temp is 97.7F, pulse is 76, respirations are 16, blood pressure is 127/78, oxygen saturation is 95% on room air. HEENT: Head is atraumatic, normocephalic. Pupils equal, round. Sclerae is anicteric. NECK: Supple. No JVD. No lymphadenopathy. No thyromegaly. LUNGS: Diminished breath sounds at the bases with no wheezing or rhonchi noted. No intercostal retractions. HEART: S1, S2 are muffled ABDOMEN: Soft. Obese. Mild right upper quadrant discomfort noted on palpation. Bowel sounds are present. No masses. No guarding or rigidity noted. EXTREMITIES: No pedal edema. No calf tenderness. NEUROLOGICAL: Patient is awake, alert and oriented x3. Cranial nerves 2 through 12 are grossly intact. - Labs CBC & Chem 7: 11/06/19 02:01 11/06/19 02:01 Labs: Abnormal Lab Results - Last 24 Hours (Table) 11/05/19 11/06/19 11/06/19 Range/Units 15:49 02:01 09:07 APTT 35.8 H (22.0-30.0) sec Sodium 135 L 136 L (137-145) mmol/L Glucose 101 H (74-99) mg/dL Triglycerides 335 H (<150) mg/dL Cholesterol 223 H (<200) mg/dL LDL Cholesterol, Calc 105 H (0-99) mg/dL Assessment and Plan Assessment: Chest pain, possible unstable angina Epigastric pain. Rule out GERD. Rule out acute cholecystitis, cholelithiasis Hyponatremia, mild History of atrial fibrillation Hypertension History of degenerative joint disease history of ablation History of cardioversion History of ganglion cyst removal Remote history of nicotine dependence Obesity with a body mass index of 39.7 Full code Recommendations and discussion: Recommend to continue current medications, management, and symptomatic treatment. Patient underwent stress test as mentioned previously and cardiology following planning for possible cardiac catheterization either during hospital iz or outpatient Saturday after close observation due to continuous chest pain and discomfort noted on the right side. Will continue to monitor vital signs and labs closely. Further recommendations to follow. Possible discharge in 24 hours.
--- NOTE | 2019-11-06 16:22 | EST ---
Stress Test Results/Findings: Exam Performed: NM stress lexiscan cardiolite Exam Date: 11/06/19 Reason for Exam: Chest Pressure Height: 6 ft 5 in Weight: 151.95 kg Protocol: Lexiscan Stage: na Duration of Exercise: na Resting Heart Rate: 66 Resting Blood Pressure: 187/59 Maximum Achieved Heart Rate: 92 Maximum Achieved Blood Pressure: 207/67 85% PMHR: 123 100% PMHR: 145 METS: na Technologist Comment: Stress Test Results/Findings: This is a 53-year-old gentleman with history of smoking being evaluated for symptoms of chest pain and shortness of breath. He did Stress data: The baseline EKG showed sinus rhythm with a UT interval and QRS duration. Blood pressure at rest is 146/87 with pulse rate of 69. A standard dose of Lexiscan was infused. EKGs taken during and after the infusion did not reveal any change of ischemia . Final impression: #1. Negative Lexiscan stress test #2. Report on the nuclear images to be given by the radiologist. DAINA
[2019-11-07 06:31] LABS: Basophils # (A) 0.1 k/uL (0-0.2); Basophils % (A) 1 %; Eosinophils # (A) 0.2 k/uL (0-0.7); Eosinophils % (A) 3 %; HCT 43.2 % (39.0-53.0); HGB 14.7 gm/dL (13.0-17.5); Lymphocytes # (A) 1.4 k/uL (1.0-4.8); Lymphocytes % (A) 24 %; MCH 31.5 pg (25.0-35.0); MCHC 33.9 g/dL (31.0-37.0); MCV 92.8 fL (80.0-100.0); Mean Platelet Volume 7.9; Monocytes # (A) 0.3 k/uL (0-1.0); Monocytes % (A) 5 %; Neutrophils # (A) 3.9 k/uL (1.3-7.7); Neutrophils % (A) 64 %; Platelet Count 184 k/uL (150-450); RBC 4.65 m/uL (4.30-5.90); RDW 13.5 % (11.5-15.5); WBC 6.1 k/uL (3.8-10.6)
[2019-11-07 06:58] LABS: African American GFR (CKD) >90 (>60 ml/min/1.73 sqM); Anion Gap 4 mmol/L; Blood Urea Nitrogen 12 mg/dL (9-20); Carbon Dioxide 28 mmol/L (22-30); Chloride 105 mmol/L (98-107); Glucose 116 mg/dL (74-99); Non-African American GFR(CKD) >90 (>60 ml/min/1.73 sqM); Potassium 4.4 mmol/L (3.5-5.1); Sodium 137 mmol/L (137-145)
[2019-11-07] MEDS: atenoloL 25 MG TAB PO SCH (07:39)
[2019-11-07] MEDS: MULTIVITAMINS, THERA 1 EACH TAB PO SCH (07:39)
[2019-11-07] MEDS: CHOLECALCIFEROL 1,000 UNIT TAB PO SCH (07:39)
[2019-11-07] MEDS: TAMSULOSIN 0.4 MG CAP.ER.24H PO SCH (07:39)
[2019-11-07] MEDS: NON FORMULARY DRUG (Omega-3 Fatty Acids/Fish Oil [Fish Oil 1,000 Mg Softgel] 1 CAP) PO SCH (07:40)
[2019-11-07] MEDS: FLECAINIDE 50 MG TAB PO SCH (07:40)
[2019-11-07] MEDS ORDERED: ASPIRIN 81 MG PO SCH (09:00)
[2019-11-07] MEDS ORDERED: ATORVASTATIN 40 MG TAB PO SCH (09:00)
--- NOTE | 2019-11-07 13:02 | P.CRDCN ---
History of Present Illness Consult date: 11/07/19 Consult reason: chest pain History of present illness: The patient is a 53-year-old male with past medical history of paroxysmal atrial fibrillation status post ablation, hypertension, and former smoker, who initially presented to the hospital with new onset of epigastric discomfort. The pain radiated up into the anterior right chest wall. He continued to have this pain up until yesterday, however states he has been pain-free overnight. He has been walking in the halls without symptoms. He also denies any shortness of breath, dizziness, or palpitations. Nuclear stress testing showed a small reversible defect in the inferior wall. He will undergo coronary angiography on Saturday with Dr. Hillman. GENERAL: Well-appearing, well-nourished and in no acute distress. Patient is obese NECK: Supple without JVD or thyromegaly. LUNGS: Breath sounds clear to auscultation bilaterally. Respiration equal and unlabored. No wheezes, rales or rhonchi. HEART: Regular rate and rhythm without murmurs, rubs or gallops. S1 and S2 heard. EXTREMITIES: Normal range of motion, no edema. No clubbing or cyanosis. Peripheral pulses intact and strong. Vitals: Blood pressure 127/80, pulse 79, respiratory rate 14, SpO2 96 on room air, afebrile Labs: WBC 6.1, hemoglobin 14.7, hematocrit 43.2, platelet 184, sodium 137, potassium 4.4, BUN 12, creatinine 0.73 Impression: #1 chest pain, now resolved #2 abnormal stress test, small reversible defect in the inferior wall #3 paroxysmal atrial fibrillation status post ablation, maintaining sinus rhythm #4 hypertension, controlled #5 dyslipidemia, started on statin therapy #6 obesity, BMI 39 Plan: Patient may be discharged home for outpatient coronary angiography to be per formed on Saturday. Patient will be discharged on antiplatelet therapy as well as a statin. Past Medical History Past Medical History: Atrial Fibrillation, Hypertension, Osteoarthritis (OA) Additional Past Medical History / Comment(s): See Dr Mosher's H&P, Apr 2013 Had Afib, snores- sleeps poorly. History of Any Multi-Drug Resistant Organisms: None Reported Past Surgical History: Ablation, Joint Replacement, Orthopedic Surgery Additional Past Surgical History / Comment(s): LAST CARDIOVERSION 02/16/16. Cardioversion x 2,Ganglion cyst removed right ankle. February 2014 left hip replacement, 03-26-16 cardiac ablation Past Anesthesia/Blood Transfusion Reactions: No Reported Reaction Smoking Status: Former smoker - Past Family History Mother Family Medical History: Diabetes Mellitus, Eye Disorder Additional Family Medical History / Comment(s): Still living age 84 Father Family Medical History: Cancer, Pneumonia Additional Family Medical History / Comment(s): BLADDER CA, from age 87 "old age" Medications and Allergies Home Medications Medication Instructions Recorded Confirmed Type Multivitamin [Men's Multi-Vitamin] 1 tab PO DAILY 01/06/16 11/05/19 History [place]-3 Fatty Acids/Fish Oil [Fish 1 cap PO DAILY 01/06/16 11/05/19 History Oil 1,000 mg Softgel] atenoloL [Atenolol] 25 mg PO DAILY #90 tablet 03/28/16 11/05/19 Rx Aspirin EC [Ecotrin] 325 mg PO DAILY 11/05/19 11/05/19 History Cholecalciferol [Vitamin D3 (25 1,000 unit PO DAILY 11/05/19 11/05/19 History Mcg = 1000 Iu)] Flecainide [Tambocor] 50 mg PO Q12HR 11/05/19 11/05/19 History Tamsulosin [Flomax] 0.4 mg PO DAILY 11/05/19 11/05/19 History Allergies Allergy/AdvReac Type Severity Reaction Status Date / Time No Known Allergies Allergy Verified 11/05/19 16:45 Physical Exam Vitals: Vital Signs Temp Pulse Pulse Resp BP Pulse Ox 11/07/19 08:19 63 79 14 11/07/19 07:38 98.0 F 79 14 127/80 96 11/07/19 03:00 97.9 F 63 18 117/69 98 11/06/19 21:00 97.7 F 89 15 132/75 97 11/06/19 15:00 97.8 F 78 16 146/83 96 Intake and Output 11/06/19 11/07/19 11/07/19 22:59 06:59 14:59 Intake Total 450 Balance 450 Intake: Oral 450 Other: Voiding Method Toilet Toilet Toilet # Voids 2 1 1 Results 11/07/19 06:13 11/07/19 06:13 CBC 11/07/19 Range/Units 06:13 WBC 6.1 (3.8-10.6) k/uL RBC 4.65 (4.30-5.90) m/uL Hgb 14.7 (13.0-17.5) gm/dL Hct 43.2 (39.0-53.0) % Plt Count 184 (150-450) k/uL Comprehensive Metabolic Panel 11/07/19 Range/Units 06:13 Sodium 137 (137-145) mmol/L Potassium 4.4 (3.5-5.1) mmol/L Chloride 105 (98-107) mmol/L Carbon Dioxide 28 (22-30) mmol/L BUN 12 (9-20) mg/dL Creatinine 0.73 (0.66-1.25) mg/dL Glucose 116 H (74-99) mg/dL Calcium 9.0 (8.4-10.2) mg/dL Current Medications Generic Name Dose Route Start Last Admin Trade Name Freq PRN Reason Stop Dose Admin Hydrocodone Bitart/Acetaminophen 1 each 11/06/19 05:48 11/06/19 21:34 [place] 5-325 PO 1 each Q6HR PRN Administration Pain Aspirin 81 mg 11/07/19 09:00 11/07/19 07:39 Aspirin PO 81 mg DAILY [facility] Administration Atenolol 25 mg 11/06/19 09:00 11/07/19 07:39 Tenormin PO 25 mg DAILY [facility] Administration Atorvastatin Calcium 40 mg 11/07/19 09:00 11/07/19 07:39 Lipitor PO 40 mg DAILY [facility] Administration Cholecalciferol 1,000 unit 11/06/19 09:00 11/07/19 07:39 Vitamin D3 (25 Mcg = 1000 Iu) PO 1,000 unit DAILY [facility] Administration Flecainide Acetate 50 mg 11/05/19 21:00 11/07/19 07:40 Tambocor PO 50 mg Q12HR [facility] Administration Multivitamins 1 each 11/06/19 09:00 11/07/19 07:39 Theragran PO 1 each DAILY [facility] Administration Nitroglycerin 0.4 mg 11/05/19 17:09 Nitrostat SUBLINGUAL Q5M PRN Chest Pain Non-Formulary Medication 1 cap 11/06/19 09:00 11/07/19 07:40 [place]-3 Fatty Acids/Fish Oil [Fish Oil 1,000 Mg Softgel] PO Not Given DAILY [facility] Tamsulosin HCl 0.4 mg 11/06/19 09:00 11/07/19 07:39 Flomax PO 0.4 mg DAILY [facility] Administration Intake and Output 11/06/19 11/07/19 11/07/19 22:59 06:59 14:59 Intake Total 450 Balance 450 Intake: Oral 450 Other: Voiding Method Toilet Toilet Toilet # Voids 2 1 1 11/07/19 06:13 11/07/19 06:13
[2019-11-07 13:27] LABS: Hepatitis A Antibody IgM Non-Reactive (Non-Reactive); Hepatitis B Core IgM Non-Reactive (Non-Reactive); Hepatitis B Surface Antigen Non-Reactive (Non-Reactive); Hepatitis C IgG Antibody Non-Reactive (Non-Reactive)
[2019-11-07 15:30] VITALS: BP 110/70; PULSE 65; RESP 16; TEMP 97.8
--- NOTE | 2019-11-08 09:00 | ECHOF ---
Referral Reason:Chest pain MEASUREMENTS -------- HEIGHT: 195.6 cm WEIGHT: 152.0 kg BP: 127/78 IVSd: 1.6 cm (0.6 - 1.1) LVIDd: 4.8 cm (3.9 - 5.3) LVPWd: 1.5 cm (0.6 - 1.1) IVSs: 2.0 cm LVIDs: 3.3 cm LVPWs: 2.4 cm RVIDd: 3.5 cm (< 3.3) LAESV Index (A-L): 27.52 ml/m Ao Diam: 3.7 cm (2.0 - 3.7) AV Cusp: 2.5 cm (1.5 - 2.6) EPSS: 0.3 cm MV E Wally: 0.75 m/s MV DecT: 132 ms MV A Wally: 0.48 m/s MV E/A Ratio: 1.57 RAP: 5.00 mmHg RVSP: 15.73 mmHg MV EF SLOPE: 131.65 mm/s (70 - 150) MV EXCURSION: 25.16 mm (> 18.000) FINDINGS -------- Sinus rhythm. This was a technically difficult study with suboptimal apical views. The left ventricular size is normal. There is moderate concentric left ventricular hypertrophy. O verall left ventricular systolic function is normal with, an EF between 55 - 60 %. The diastolic fi lling pattern is normal for the age of the patient {E/E'}. The right ventricle is mildly enlarged. Normal LA size by volume 22+/-6 ml/m2. The right atrial size is normal. xx ml of Lumason was utilized for enhancement of images. Interatrial and interventricular septum intact. The aortic valve was not well visualized. There is no evidence of aortic regurgitation. There is no evidence of aortic stenosis. No mitral regurgitation. Mild tricuspid regurgitation present. There is no evidence of pulmonary hypertension. The right v entricular systolic pressure, as measured by Doppler, is 15.73mmHg. There is no pulmonic regurgitation present. The aortic root size is normal. IVC Not well visulized. There is no pericardial effusion. CONCLUSIONS -------- 1. The left ventricular size is normal. 2. There is moderate concentric left ventricular hypertrophy. 3. Overall left ventricular systolic function is normal with, an EF between 55 - 60 %. 4. The diastolic filling pattern is normal for the age of the patient {E/E'} 5. The right ventricle is mildly enlarged. 6. Mild tricuspid regurgitation present. [employer] SUPERVISOR: Anahi Aguilar RDCS
--- NOTE | 2019-11-13 08:50 | P.DS ---
Providers Date of admission: 11/05/19 17:09 Expected date of discharge: 11/07/19 Attending physician: Leandra Guerrero Consults: 11/05/19 17:09 Consult Physician Urgent Consulting Provider: [facility] Consult Reason/Comments: Unstable angina Do you want consulting provider notified?: Yes Primary care physician: Kp Chaudhry [facility] Course: Final diagnosis Chest pain, possible unstable angina Epigastric pain. Rule out GERD. Ruled out acute cholecystitis, cholelithiasis Hyponatremia, mild History of atrial fibrillation Hypertension History of degenerative joint disease history of ablation History of cardioversion History of ganglion cyst removal Remote history of nicotine dependence Obesity with a body mass index of 39.7 Full code Discharge disposition Patient is being discharged in a stable condition with guarded prognosis to home. Patient will follow-up with Dr. Goodrich upon discharge. Patient will also follow-up with cardiology for a cardiac catheterization on Saturday as discussed. Total time taken is 35 minutes. History of present illness This is an 53-year-old male who was recently admitted with abdominal discomfort in the right upper part of the abdomen with a burning sensation that radiated to the epigastrium and right shoulder and was being closely monitored. Patient was seen and evaluated by cardiology recommending stress test. Patient underwent Lexiscan stress test showing a predominantly fixed defect involving the inferior wall of the myocardium with corresponding wall motion reduction with a possible small area of is stressed induced reversible ischemia. Cardiology planning for cardiac catheterization. Patient to continue being monitored overnight and will be sent home and set up for cardiac catheterization in the outpatient setting on Saturday morning. Patient is agreeable to this. Patient was experiencing some dizziness and right-sided chest pain intermittently after the stress test and was observed for an additional 24 hours and felt much better. Patient denies any abdominal discomfort and continues to have some mild right shoulder discomfort although is most likely musculoskeletal patient will be sent home and is scheduled for cardiac catheterization on Saturday. Currently no reports of chest pain, shortness of breath, or palpitations. Patient is afebrile. No reports of nausea or vomiting and patient is tolerating diet. Guarded prognosis. On exam vital signs are stable. Temp is 97.8F, pulse is 65, respirations are 16, blood pressure is 110/70, oxygen saturation is 96% on room air. Cardio S1, S2 are muffled. Respiratory shows diminished breath sounds at the bases with no wheezing or rhonchi noted. Abdomen is soft, obese, and nontender. Nervous system shows no focal deficit. Please refer to medication reconciliation sheet for a list of medications. Patient Condition at Discharge: Stable Plan - Discharge Summary Discharge Rx Participant: No New Discharge Prescriptions: New Atorvastatin Calcium [Lipitor] 40 mg PO DAILY 30 Days #30 tablet Continue Multivitamin [Men's Multi-Vitamin] 1 tab PO DAILY Bowdon-3 Fatty Acids/Fish Oil [Fish Oil 1,000 mg Softgel] 1 cap PO DAILY atenoloL [Atenolol] 25 mg PO DAILY #90 tablet Cholecalciferol [Vitamin D3 (25 Mcg = 1000 Iu)] 1,000 unit PO DAILY Aspirin EC [Ecotrin] 325 mg PO DAILY Tamsulosin [Flomax] 0.4 mg PO DAILY Flecainide [Tambocor] 50 mg PO Q12HR Discharge Medication List Multivitamin [Men's Multi-Vitamin] 1 tab PO DAILY 01/06/16 [History] Bowdon-3 Fatty Acids/Fish Oil [Fish Oil 1,000 mg Softgel] 1 cap PO DAILY 01/06/16 [History] atenoloL [Atenolol] 25 mg PO DAILY #90 tablet 03/28/16 [Rx] Aspirin EC [Ecotrin] 325 mg PO DAILY 11/05/19 [History] Cholecalciferol [Vitamin D3 (25 Mcg = 1000 Iu)] 1,000 unit PO DAILY 11/05/19 [History] Flecainide [Tambocor] 50 mg PO Q12HR 11/05/19 [History] Tamsulosin [Flomax] 0.4 mg PO DAILY 11/05/19 [History] Atorvastatin Calcium [Lipitor] 40 mg PO DAILY 30 Days #30 tablet 11/08/19 [Rx] Follow up Appointment(s)/Referral(s): Migue Goodrich MD [Primary Care Provider] - 1-2 days Malachi Hillman MD [STAFF PHYSICIAN] - 1 Week (Catheterization Saturday morning at 0900, return to the hospital at 0730 Saturday morning. Nothing to eat or drink after midnight Saturday night for the procedure. ) Activity/Diet/Wound Care/Special Instructions: activity limited until follow up follow up with cardiology Saturday as scheduled for cardiac catheterization continue current diet follow up with pcp this week Discharge Disposition: HOME SELF-CARE
== END 2019-11-07 17:05 | disposition home or self-care (01) ==
LOC: EC 15:00 → 3NCARDOBS 17:09
PROVIDERS: ADMIT Hospitalist; ATTEND Hospitalist
DX: R07.89 Other chest pain (principal); R94.39 Abnormal result of other cardiovascular function study; R10.13 Epigastric pain; R11.0 Nausea; R61 Generalized hyperhidrosis; M25.511 Pain in right shoulder; R42 Dizziness and giddiness; R16.0 Hepatomegaly, not elsewhere classified; N20.0 Calculus of kidney; E87.1 Hypo-osmolality and hyponatremia; I48.0 Paroxysmal atrial fibrillation; I11.9 Hypertensive heart disease without heart failure; E78.5 Hyperlipidemia, unspecified; M19.90 Unspecified osteoarthritis, unspecified site; R06.83 Snoring; G47.8 Other sleep disorders; I07.1 Rheumatic tricuspid insufficiency; S79.9 Unspecified injury of hip and thigh; E66.9 Obesity, unspecified; Z68.39 Body mass index [BMI] 39.0-39.9, adult; Z03.818 Encounter for observation for suspected exposure to other biological agents ruled out; Z79.82 Long term (current) use of aspirin; Z79.899 Other long term (current) drug therapy; Z98.890 Other specified postprocedural states; Z96.642 Presence of left artificial hip joint; Z87.39 Personal history of other diseases of the musculoskeletal system and connective tissue; Z87.891 Personal history of nicotine dependence; Z83.3 Family history of diabetes mellitus; Z83.518 Family history of other specified eye disorder; Z80.52 Family history of malignant neoplasm of bladder; Z82.5 Family history of asthma and other chronic lower respiratory diseases; X58.XXXD Exposure to other specified factors, subsequent encounter
CPT/HCPCS: 93005 ×2; 96366 ×2; 96376 ×2; 96365; 99291; 36415; 93017; 93306; 80061; 80053; 80048 ×2; 80074; 83735; 84484; 85025 ×3; 85610; 85730 ×2; 81003; 71046; 76705; 78452; G0378 ×3; U0003; A9500; J1644 ×3; J2785; Q9950

== ENCOUNTER 2019-11-09 07:23 | Day surgery (SDC) | payer BC ==
[~2019-11-09 07:23] MED LIST: ALPRAZolam 0.25 MG TAB PO PRN; ALPRAZolam 0.5 MG TAB PO PRN; ATORVASTATIN 80 MG TAB PO ONE; ATORVASTATIN 80 MG TAB PO STA; NITROGLYCERIN SL TABS 0.4 MG TAB SUBLINGUAL PRN; SODIUM CHLORIDE 0.9% 1,000 ML in EMPTY BAG 1 BAG IV ONE
[2019-11-09] MEDS ORDERED: SODIUM CHLORIDE 0.9% 1,000 ML IV ONE (08:00)
[2019-11-09 08:16] VITALS: RESP 16; TEMP 98.4
[2019-11-09] MEDS ORDERED: LIDOCAINE 1% INJ 10MG/ML (20 ML MDV) ONE (08:39)
[2019-11-09] MEDS ORDERED: fentaNYL (PF) 50 MCG/ML 2 ML AMP ONE (08:48)
[2019-11-09] MEDS ORDERED: fentaNYL (PF) 50 MCG/ML 2 ML AMP IVP ONE (08:58)
[2019-11-09] MEDS ORDERED: LIDOCAINE 1% INJ 10MG/ML (20 ML MDV) SQ ONE (08:58)
[2019-11-09] MEDS ORDERED: MIDAZOLAM 2 MG/2 ML VIAL IVP ONE (08:58)
[2019-11-09] MEDS ORDERED: IOPAMIDOL-370 100ML BTL INJ ONE (09:08)
[2019-11-09] MEDS ORDERED: SODIUM CHLORIDE 0.9% 1,000 ML IV SCH ×2 (09:31→12:30)
[2019-11-09] MEDS ORDERED: RX INFO: IV CONTRAST WAS GIVEN 1 EACH MISC MISCELLANE PRN ×2 (09:31→12:26)
--- NOTE | 2019-11-09 11:57 | CC ---
CARDIAC CATHETERIZATION REPORT INDICATION: Chest pain with abnormal stress test. PROCEDURE NOTE: After obtaining informed consent, left heart catheterization and coronary angiogram were performed via the right femoral artery using standard Zain catheters. Patient tolerated the procedure well without any obvious immediate complications. A femoral angiogram was performed and Angio-Seal will be deployed for hemostasis. Patient received moderate conscious sedation. Total sedation time was 13 minutes. FINDINGS: HEMODYNAMICS: Left ventricular end-diastolic pressure is 4 mm. There is no significant gradient across the aortic valve. LEFT VENTRICULOGRAM: Left ventriculogram was not performed. ANGIOGRAPHIC DATA: LEFT MAIN CORONARY ARTERY: Left main coronary artery is a normal-sized vessel and is free of stenosis. Divides into left anterior descending coronary artery and circumflex coronary artery. LAD and its branches, circumflex coronary artery and its branches are free of significant stenosis. RIGHT CORONARY ARTERY: This is a large dominant vessel and is free of significant disease. CONCLUSION: 1. Normal coronary arteries. 2. Patient's chest pain is probably noncardiac in origin, the stress test is a false positive stress test. MMODL / IJN: [id number] /
[2019-11-09 14:01] VITALS: BP 118/72; PULSE 70
== END 2019-11-09 14:01 | disposition home or self-care (01) ==
LOC: CATHCVL 07:23
PROVIDERS: ATTEND Internal Medicine Cardiovascular Disease
DX: R94.39 Abnormal result of other cardiovascular function study (principal); R07.89 Other chest pain; I10 Essential (primary) hypertension; M19.90 Unspecified osteoarthritis, unspecified site; I48.0 Paroxysmal atrial fibrillation; E78.5 Hyperlipidemia, unspecified; E66.9 Obesity, unspecified; Z68.39 Body mass index [BMI] 39.0-39.9, adult; Z87.891 Personal history of nicotine dependence; Z96.642 Presence of left artificial hip joint; Z83.3 Family history of diabetes mellitus; Z80.52 Family history of malignant neoplasm of bladder; Z83.518 Family history of other specified eye disorder; Z79.82 Long term (current) use of aspirin; Z79.899 Other long term (current) drug therapy
CPT/HCPCS: 93458; C1769 ×2; C1760; C1894; J2250; J2001; J3010; Q9967

== ENCOUNTER → 2019-12-17 | Outpatient (CLI) | payer BC | END | disposition home or self-care (01) | LOC: LABWHC1 10:24 | PROVIDERS: ATTEND Internal Medicine | DX: Z12.5 Encounter for screening for malignant neoplasm of prostate (principal) | CPT/HCPCS: 36415; 84153 ==

== ENCOUNTER → 2020-09-13 | Outpatient (CLI) | payer BC ==
--- NOTE | 2020-09-13 15:54 | PN ---
PROGRESS NOTE This patient is coming in for followup regarding obstructive sleep apnea. Last evaluation was done in 2017. The patient was diagnosed having severe PAULINE with an AHI of 67 and the patient continues to be on CPAP pressure of 10 cm of water. His comorbid conditions include paroxysmal atrial fibrillation and hyperlipidemia and BPH. The patient remains on a combination of metoprolol 25 mg p.o. daily and flecainide 50 mg p.o. daily. Regarding atrial fibrillation, cardiac rhythm remained sinus. His weight has remained stable over the past 4 years. He continues to use his CPAP and based on 30-day compliance, the patient has been utilizing his CPAP machine every night without any interruption. CPAP use for more than 4 hours is 100%. Leak is in order of 12 L/minute and AHI is down to 1.5. Using a Mirage FX nasal mask. Doing well. [place] score is only 6. REVIEW OF SYSTEMS: Fourteen-point review of system was done. Positive findings are mentioned above in history of present illness. PHYSICAL EXAMINATION: BP 144/84, pulse 79, respirations 16, temperature 97.0, saturation 96% on room air. Weight is 333. MEDICATION: Include atenolol 25 daily, flecainide 50 twice a day, tamsulosin 0.4 daily, Lipitor 40 daily, meloxicam 15 daily, aspirin 325 daily, vitamin D, fish oil, multivitamin. GENERAL APPEARANCE: Calm comfortable. HEAD: Atraumatic, normocephalic. NECK: Supple. No JVD. No goiter or neck masses. LUNGS: Clear to auscultation. HEART: Heart sounds are regular rate and rhythm. Normal S1, S2. No S3, S4. No murmurs. ABDOMEN: Soft, nontender. No organomegaly. EXTREMITIES: No edema. No cyanosis or clubbing. NEUROLOGIC: Awake and alert. There is no focal neurological deficit. IMPRESSION: 1. Severe obstructive sleep apnea, AHI of 67. The patient continues to be successfully treated with a CPAP pressure of 10 cm of water. 2. Obesity, stable body weight at 333 pounds with a body mass index of 38.4. 3. Chronic hypersomnia, improved. 4. Paroxysmal atrial fibrillation current rhythm is sinus. PLAN: 1. Continue CPAP therapy same level of pressure. 2. Offer the patient an AirFit N20 large size nasal mask to try and decide if this is something that he would like to use in the future. 3. Weight loss. 4. In general sleep hygiene measures are already adequate. Cardiovascular status is stable. See me back in a year's time, earlier if needed. For now, his condition is stable. Refills were given including heated tubing and nasal mask. MMRITAL / IJN: [id number] /
== END ==
LOC: SLEEP 12:59
PROVIDERS: ATTEND Internal Medicine Critical Care Medicine
DX: G47.33 Obstructive sleep apnea (adult) (pediatric) (principal); E66.9 Obesity, unspecified; Z68.38 Body mass index [BMI] 38.0-38.9, adult; I48.0 Paroxysmal atrial fibrillation; Z99.81 Dependence on supplemental oxygen; E78.5 Hyperlipidemia, unspecified; Z87.891 Personal history of nicotine dependence

== ENCOUNTER → 2022-08-08 | Outpatient (CLI) | payer BC ==
--- NOTE | 2022-08-08 10:29 | XR ---
EXAM TYPE: LUMBAR SPINE X RAY SERIES COMPARISON: NONE HISTORY: pt co chronic bilateral hip and LBP TECHNIQUE: 7 views are submitted. FINDINGS: Alignment is anatomic. The pedicles are intact. The transverse processes are intact. There is no s pondylolysis or spondylolisthesis. Severe degenerative disc disease L5-S1 and L1-L2. Multilevel face t arthropathy L1-S1 with foraminal protrusion L4-5 and L5-S1 suspected. Flexion and extension lateral views demonstrate stable alignment. Partially included in the [id number] there are surgical corona es involving the pelvis. Mild diffuse osteopenia. IMPRESSION: 1. Multilevel degenerative disc disease with severe changes at L5-S1 and L1-L2. Additional multilevel facet arthropathy. Suspected foraminal encroachment L4-5 and L5-S1
== END | disposition home or self-care (01) ==
LOC: RADXRYALE 10:01
PROVIDERS: ATTEND Physical Medicine & Rehabilitation
DX: M51.17 Intervertebral disc disorders with radiculopathy, lumbosacral region (principal); M47.27 Other spondylosis with radiculopathy, lumbosacral region
CPT/HCPCS: 72114

== ENCOUNTER → 2023-02-22 | Outpatient (CLI) | payer OTHER ==
--- NOTE | 2023-02-24 11:06 | MR ---
EXAMINATION TYPE: MR lumbar spine wo con DATE OF EXAM: 02/22/2023 8:22 PM CLINICAL INDICATION:Male, 57 years old with history of M54.16; PHH, Low back pain into both legs COMPARISON: Lumbar spine radiograph 08/08/2022. TECHNIQUE: Multi planar, multi sequence imaging was performed utilizing: T1-weighted, T2-weighted, a nd turbo inversion recovery imaging of the lumbar spine. IV Contrast: cc . (None if empty) FINDINGS: Alignment: The lumbar vertebral bodies have preserved heights and alignment. Cord: The conus medullaris and the distal spinal cord appear unremarkable with regards to their signa l intensity and morphology. Bones/Discs: Scattered degeneration changes throughout the spine with osteophyte formation Modic endp late changes, disc desiccation and disc space narrowing. There is facet joint arthropathy throughout the spine. High T1 signal/high T2 signal T12 vertebral body hemangioma. T12-L1: No evidence of significant spinal canal stenosis or neural foraminal stenosis. L1-L2: No evidence of significant spinal canal stenosis or neural foraminal stenosis. L2-L3: Disc bulge and facet joint arthropathy result in mild spinal canal and mild bilateral neural f oraminal stenosis. L3-L4: Disc bulge and facet joint arthropathy result in mild spinal canal and mild bilateral neural f oraminal stenosis. L4-L5: Disc bulge and facet joint arthropathy result in mild spinal canal and mild bilateral neural f oraminal stenosis. L5-S1: The disc is rounded posterior morphology without significant spinal canal stenosis. Facet join t arthropathy with mild bilateral neural foraminal stenosis. No significant spinal canal or neural foraminal stenosis in the remainder of the visualized levels. Other findings: None. IMPRESSION: 1. No definitive evidence of disc herniation or significant spinal canal stenosis. 2. Mild to moderate disc degeneration with associated osteoarthritic changes. No evidence for signif icant neural foraminal stenosis.
== END | disposition home or self-care (01) ==
LOC: RADMRIMAIN 19:45
DX: M51.16 Intervertebral disc disorders with radiculopathy, lumbar region (principal); M47.27 Other spondylosis with radiculopathy, lumbosacral region
CPT/HCPCS: 72148